=== PATIENT | female | born 1935 | race African-American/Black ===

== ENCOUNTER → 2018-07-03 | Emergency (ER) | payer BC ==
[~2018-07-03] VITALS: Ht 157.5 cm; Wt 67.0 kg
[~2018-07-03] MED LIST: ACETAMINOPHEN 325MG TABLET PO ONE
[2018-07-03 10:15] VITALS: BP 161/70
== END | disposition home or self-care (01) ==
LOC: ER 10:23
DX: S13.4XXA Sprain of ligaments of cervical spine, initial encounter (principal); S00.83XA Contusion of other part of head, initial encounter; R07.89 Other chest pain; F17.210 Nicotine dependence, cigarettes, uncomplicated; F12.10 Cannabis abuse, uncomplicated; V43.62XA Car passenger injured in collision with other type car in traffic accident, initial encounter; Y93.89 Activity, other specified; Y92.488 Other paved roadways as the place of occurrence of the external cause
CPT/HCPCS: 71046; 99284